=== PATIENT | female | born 1940 | race Caucasian/White ===

== ENCOUNTER 2018-06-27 10:42 | Emergency (ER) | payer OTHER ==
[~2018-06-27] VITALS: Ht 170.2 cm; Wt 54.0 kg
[2018-06-27] MEDS ORDERED: DIPH,PERTUSS(ACELL),TET VAC/PF 0.5 ML IM-VACC ONE ×2 (10:54→11:00)
[2018-06-27] MEDS ORDERED: LIDOCAINE-MPF 1%, 5ML ONE (10:54)
[2018-06-27] MEDS ORDERED: LIDOCAINE-MPF 1%, 5ML INFIL ONE (11:00)
[2018-06-27] MEDS ORDERED: ALEN5TAB2 PO (11:07)
[2018-06-27] MEDS ORDERED: BACITRACIN ZINC OINT 500U/GM, 0.9 GM ONE (12:24)
[2018-06-27 12:59] VITALS: BP 151/67
== END 2018-06-27 13:11 | disposition home or self-care (01) ==
LOC: EDBD 10:42 → ED 13:05
DX: S01.81XA Laceration without foreign body of other part of head, initial encounter (principal); W01.0XXA Fall on same level from slipping, tripping and stumbling without subsequent striking against object, initial encounter; Y93.89 Activity, other specified; Y92.410 Unspecified street and highway as the place of occurrence of the external cause; Y99.8 Other external cause status
CPT/HCPCS: 12011; 70100; 90471; 90715

== ENCOUNTER 2018-07-03 07:13 | Emergency (ER) | payer OTHER ==
[~2018-07-03] VITALS: Ht 170.2 cm; Wt 53.4 kg
[~2018-07-03 07:13] MED LIST: ALEN5TAB2 PO
[2018-07-03 07:14] VITALS: BP 165/79
== END 2018-07-03 08:31 | disposition home or self-care (01) ==
LOC: ED 08:16
DX: S01.81XD Laceration without foreign body of other part of head, subsequent encounter (principal); M19.90 Unspecified osteoarthritis, unspecified site
CPT/HCPCS: 99281

== ENCOUNTER 2019-10-14 11:31 | Emergency (ER) | payer MEDICARE, OTHER ==
[~2019-10-14] VITALS: Ht 167.6 cm; Wt 57.2 kg
[~2019-10-14 11:31] MED LIST changes: -ALEN5TAB2 PO; +ALEN5TAB5 PO
[2019-10-14 11:41] VITALS: BP 170/71
--- NOTE | 2019-10-14 12:31 | NUR ---
PT TO IMAGING
[2019-10-14] MEDS ORDERED: NEOSPORIN OINT. PKT 1 PACKET ONE ×3 (12:59→14:50)
[2019-10-14] MEDS ORDERED: HYDROcodone/APAP 5/325 TABLET PO ONE (13:00)
[2019-10-14] MEDS ORDERED: HYDROcodone/APAP 5/325 TABLET ONE (13:04)
--- NOTE | 2019-10-14 14:41 | NUR ---
BACK FROM IMAGING, RESTING IN BED, CALL LIGHT IN REACH.
== END 2019-10-14 15:02 | disposition home or self-care (01) ==
LOC: ED 12:00
DX: S00.83XA Contusion of other part of head, initial encounter (principal); R94.31 Abnormal electrocardiogram [ECG] [EKG]; W01.0XXA Fall on same level from slipping, tripping and stumbling without subsequent striking against object, initial encounter; Y93.89 Activity, other specified; Y92.410 Unspecified street and highway as the place of occurrence of the external cause; Y99.8 Other external cause status
CPT/HCPCS: 70450; 70486; 71046; 93005; 99285